=== PATIENT | female | born 1975 | race Two or more races ===

== ENCOUNTER 2018-04-26 08:15 | Day surgery (SDC) | payer OTHER | END 2018-04-26 13:50 | disposition home or self-care (01) | LOC: AMB-ENDOS 08:15 | DX: K21.9 Gastro-esophageal reflux disease without esophagitis (principal); R10.13 Epigastric pain ==

== ENCOUNTER 2018-04-26 08:23 | Outpatient (CLI) | payer OTHER | END 2018-04-26 08:36 | disposition home or self-care (01) | LOC: EKG 08:23 | DX: E66.01 Morbid (severe) obesity due to excess calories (principal); R00.0 Tachycardia, unspecified ==

== ENCOUNTER 2018-05-09 07:40 | Outpatient (CLI) | payer OTHER | END 2018-05-09 07:44 | disposition home or self-care (01) | LOC: RX STUDY 07:40 | DX: R10.13 Epigastric pain (principal); K21.9 Gastro-esophageal reflux disease without esophagitis ==

== ENCOUNTER 2019-07-26 10:39 | Inpatient (IN) | payer OTHER ==
[~2019-07-26] VITALS: Ht 162.6 cm; Wt 67.8 kg
[~2019-07-26 10:39] MED LIST: SINGLE USE SWA1 EACH
== END 2019-07-30 09:47 | disposition home or self-care (01) | DRG 621 ==
LOC: CIR.AMB 07-29 07:34 → O/R 07-29 09:00 → CIR.AMB 07-29 10:05 → EDSTATUS 07-29 10:06 → SURH 07-29 10:07
PROVIDERS: ADMIT Plastic Surgery
PROC: 0HX5XZZ Transfer Chest Skin, External Approach (ICD-10-PCS; 2019-07-29)
PROC: 0H0V0ZZ Alteration of Bilateral Breast, Open Approach (ICD-10-PCS; 2019-07-29)
PROC: 0J080ZZ Alteration of Abdomen Subcutaneous Tissue and Fascia, Open Approach (ICD-10-PCS; principal; 2019-07-29 12:00)
DX: E65 Localized adiposity (principal); N62 Hypertrophy of breast; M62.08 Separation of muscle (nontraumatic), other site; Z98.84 Bariatric surgery status

== ENCOUNTER 2023-11-30 15:56 | Emergency (ER) | payer OTHER ==
[~2023-11-30] VITALS: Ht 162.6 cm; Wt 68.9 kg
[2023-11-30] MEDS ORDERED: IRON325 MG (16:29)
[2023-11-30] MEDS ORDERED: hydrOXYzine PAMOATE 25 MG CAPSULE PO ONE (17:15)
[2023-11-30 18:47] LABS: HEMATOCRIT 39.4 % (36.0-45.00); HEMOGLOBIN 13.5 g/dL (12.0-15.00); MEAN CELL VOLUME 95.6 fL (80.00-100.00); MEAN CORPUSCULAR HEMOGLOBIN 32.8 pg (27.00-32.0); MEAN CORPUSCULAR HGB CONC 34.3 g/dl (32.0-36.0); PLATELET COUNT 267 K/uL (150-450); RED BLOOD COUNT 4.12 M/uL (4.00-6.00); RED CELL DISTRIBUTION WIDTH 12.2 % (11.5-14.5)
[2023-11-30 19:12] LABS: CALCIUM 9.3 mg/dL (8.5-10.1); CREATININE SERUM 0.94 mg/dL (0.55-1.02); GFR 63.56; POTASSIUM 3.56 mEq/L (3.5-5.1)
[2023-11-30 19:27] LABS: URINE APPEARANCE Clear; URINE BILIRRUBIN Negative (NEGATIVE); URINE BLOOD Large; URINE COLOR Dark Yellow; URINE GLUCOSE Negative (NEGATIVE); URINE LEUKOCYTE Negative; URINE NITRATE Positive; URINE PROTEIN Negative (NEGATIVE)
[2023-11-30 19:31] LABS: URINE BACTERIA 190.2 uL (0.0-1933); URINE EPITHELIAL CELLS 12.8 uL (0.0-38.8); URINE RBC 216.4 uL (0.0-20.8); URINE WBC 6.6 uL (0.0-23.2)
[2023-11-30] MEDS ORDERED: VISTARIL25 MG PO (20:15)
[2023-11-30] MEDS ORDERED: BACTRIM DS TAB1 EACH PO (20:15)
== END 2023-11-30 20:50 | disposition home or self-care (01) ==
LOC: ER 15:56
PROVIDERS: Nurse Practitioner Family
DX: N39.0 Urinary tract infection, site not specified (principal); R00.2 Palpitations; J45.909 Unspecified asthma, uncomplicated; G43.809 Other migraine, not intractable, without status migrainosus; F41.8 Other specified anxiety disorders